=== PATIENT | male | born 1965 | race Caucasian/White ===

== ENCOUNTER → 2017-10-17 | Outpatient (CLI) | payer OTHER ==
[~2017-10-17] MED LIST: LISI-461 PO; OXYC-57 PO; OXYSR20 PO
[2017-10-17 18:40] LABS: BASO % 0.6 %; BASO ABS # 0.06 K/uL (0-0.2); EOS % 4.5 %; EOS ABS # 0.46 K/uL (0-0.5); HEMOGLOBIN 16.3 g/dL (14.0-18.0); IG# 0.05 K/uL (0.00-0.02); LYMPH % 34.3 %; LYMPH ABS # 3.51 K/uL (1.2-3.4); MEAN CELL VOLUME 89.5 fL (80-100); MEAN CORPUSCULAR HGB CONC 34.7 g/dl (32-36); MEAN PLATELET VOLUME 9.4 fL (7.4-10.4); MONO % 11.5 %; MONO ABS # 1.18 K/uL (0.11-0.59); NEUT % 48.6 %; NEUT ABS # 4.96 K/uL (1.4-6.5); PLATELET COUNT 294 K/uL (130-400); RED CELL DISTRIBUTION WIDTH CV 13.7 % (11.5-14.5); RED CELL DISTRIBUTION WIDTH SD 45.1 fL (36.4-46.3); WHITE BLOOD COUNT 10.22 K/uL (4.8-10.8)
[2017-10-17 18:50] LABS: ALBUMIN 3.5 gm/dl (3.4-5.0); ALT/SGPT 33 U/L (12-78); BLOOD UREA NITROGEN 17 mg/dl (7-18); CALCIUM 8.9 mg/dl (8.5-10.1); CARBON DIOXIDE 24 mmol/L (21-32); GLUCOSE 84 mg/dl (70-99); POTASSIUM 4.3 mmol/L (3.5-5.1); SODIUM 138 mmol/L (136-145)
[2017-10-17 18:53] LABS: ALKALINE PHOSPHATASE 88 U/L (45-117); AST/SGOT 17 U/L (15-37); TOTAL PROTEIN 7.4 gm/dl (6.4-8.2)
== END | disposition home or self-care (01) ==
LOC: C.LABSPEC 18:15
PROVIDERS: ATTEND Family Medicine
DX: I10 Essential (primary) hypertension (principal)